=== PATIENT | female | born 1995 | race African-American/Black ===

== ENCOUNTER 2018-10-06 16:05 | Emergency (ER) | payer MEDICAID ==
[~2018-10-06] VITALS: Ht 160 cm; Wt 65.0 kg
[2018-10-06] MEDS ORDERED: ONDANSETRON HCL 4MG/2ML INJ IV PRN (16:45)
[2018-10-06] MEDS ORDERED: MORPHINE SULFATE 4 MG/ML CPJ (NOT FOR IM USE) IV ONE (16:45)
[2018-10-06 16:53] LABS: BASOPHILS % 0.7 % (0.0-2.0); EOSINOPHILS % 1.4 % (0.0-5.0); HEMATOCRIT. 37.6 % (36.0-48.0); HEMOGLOBIN. 12.5 g/dL (12.0-16.0); LYMPHOCYTES % 24.7 % (20.0-50.0); MEAN CORPUSCULAR HEMOGLOBIN 30.8 pg (28.0-32.0); MEAN CORPUSCULAR VOLUME 92.2 fL (81.0-99.0); MEAN PLATELET VOLUME 9.6 fl (7.4-10.4); NEUTROPHILS % 66.2 % (40.0-76.0); PLATELET 246 x1000/uL (130-400); RED BLOOD CELL COUNT 4.07 mill/uL (4.2-5.4); RED CELL DISTRIBUTION WIDTH 13.8 % (11.6-14.6)
[2018-10-06 16:54] LABS: CHLORIDE 105 mEq/L (98-107)
[2018-10-06 17:16] LABS: B-HCG QUANTITATIVE 10251 mIU/mL (<3)
[2018-10-06 19:58] LABS: CLARITY URINE TURBID (CLEAR); COLOR URINE RED (YELLOW); KETONES URINE 3+ (NEGATIVE); LEUKOCYTE ESTERASE URINE 2+ (NEGATIVE); NITRITE URINE POSITIVE (NEGATIVE); OCCULT BLOOD URINE 3+ (NEGATIVE); PROTEIN URINE 3+ (NEGATIVE)
[2018-10-06 20:49] VITALS: BP 121/80
== END 2018-10-06 20:50 | disposition home or self-care (01) ==
LOC: ER 16:05
DX: O03.9 Complete or unspecified spontaneous abortion without complication (principal); O23.41 Unspecified infection of urinary tract in pregnancy, first trimester; Z3A.01 Less than 8 weeks gestation of pregnancy
CPT/HCPCS: 36415; 76801; 80048; 81003; 81025; 84702; 85025; 86850; 86900; 86901; 87086; 96374; 96375; 99284; J2270; J2405; Z7610

== ENCOUNTER 2024-09-15 20:25 | Emergency (ER) | payer MEDICAID ==
[~2024-09-15] VITALS: Ht 157.5 cm; Wt 76.0 kg
[2024-09-15 20:56] VITALS: O2SAT 98
[2024-09-15] MEDS: CYCLOBENZAPRINE 10MG TABLET PO ONE (23:06)
[2024-09-15] MEDS: KETOROLAC 30MG/ML VIAL IM ONE (23:06)
[2024-09-16] MEDS ORDERED: CYCL10TA21 MT (00:26)
[2024-09-16] MEDS ORDERED: KETO10TA2 MT (00:26)
[2024-09-16 00:35] VITALS: BP 138/87; PULSE 68; RESP 16; TEMP 36.7; O2SAT 98
== END 2024-09-16 00:36 | disposition home or self-care (01) ==
LOC: ER 20:25
DX: S13.4XXA Sprain of ligaments of cervical spine, initial encounter (principal); S16.1XXA Strain of muscle, fascia and tendon at neck level, initial encounter; Z98.890 Other specified postprocedural states; V49.40XA Driver injured in collision with unspecified motor vehicles in traffic accident, initial encounter; Y93.89 Activity, other specified; Y92.89 Other specified places as the place of occurrence of the external cause; Y99.8 Other external cause status
CPT/HCPCS: 99283; 72040; 96372; J1885